=== PATIENT | male | born 1960 | race Hispanic/Latino ===

== ENCOUNTER 2025-07-09 20:57 | Emergency (ER) | payer SELFPAY ==
[~2025-07-09] VITALS: Ht 170.2 cm; Wt 98.9 kg
[~2025-07-09 20:57] MED LIST: CYCLOBENZAPRINE10 MG PO; NAPROXEN250 MG PO
[2025-07-09 22:00] VITALS: TEMP 98.1
[2025-07-09 22:25] VITALS: PULSE 57; RESP 17
[2025-07-09 22:43] LABS: URINE UROBILINOGEN 1 mg/dL (0.2 - 1)
[2025-07-09 22:55] LABS: BASOPHILS % 0.2 % (0.0-1.0); EOSINOPHILS % 2.4 % (0.0-6.0); LYMPHOCYTES % 13.4 % (18.0-39.1); MONOCYTES % 7.8 % (4.4-11.3); NEUTROPHILS % 75.7 % (38.7-80.0); RED CELL DISTRIBUTION WIDTH 13.6 % (11.7-14.4)
[2025-07-09 22:59] LABS: LEUKOCYTE ESTERASE ,URINE NEGATIVE (NEGATIVE)
[2025-07-09 23:00] LABS: PROTEIN,URINE DIPSTICK 1+ (NEGATIVE)
[2025-07-09 23:06] LABS: EST GLOMERULAR FILTRATION RATE 93.0 ML/MIN (>=60)
[2025-07-09 23:31] LABS: EPITHELIAL CELLS,URINE FEW /LPF
[2025-07-10] MEDS ORDERED: CEFDINIR300 MG PO (01:11)
[2025-07-10 01:24] VITALS: BP 154/99; PULSE 60; RESP 17; TEMP 97.9; O2SAT 99
[2025-07-10] MEDS ORDERED: ONDANSETRON ODT4 MG SL (01:26)
== END 2025-07-10 01:26 | disposition home or self-care (01) ==
LOC: ER 23:27
DX: N30.01 Acute cystitis with hematuria (principal); R10.13 Epigastric pain; K76.0 Fatty (change of) liver, not elsewhere classified; I10 Essential (primary) hypertension
CPT/HCPCS: 36415; 74176; 80048; 81001; 85025; 87086; 99284; J0696